=== PATIENT | female | born 1930 | race Caucasian/White ===

== ENCOUNTER 2018-07-28 15:19 | Emergency (ER) | payer MEDICARE, OTHER ==
[2018-07-28] MEDS ORDERED: Indomethacin 25 MG Cap PO ONE (15:20)
--- NOTE | 2018-07-28 15:46 | EDM.PDOC ---
ED HPI GENERAL MEDICAL PROBLEM - General Chief Complaint: Upper Extremity Injury/Pain Stated Complaint: GOUT IS BACK SHE THINKS Time Seen by Provider: 07/28/18 15:35 Source of Information: Reports: Patient - History of Present Illness INITIAL COMMENTS - FREE TEXT/NARRATIVE: Vika complains of sudden onset swelling of the wrist on the right. No trauma was treated with redness that started today. Has had gout before and is worried that this is a similar attack. - Related Data Allergies Allergy/AdvReac Type Severity Reaction Status Date / Time No Known Allergies Allergy Verified 07/28/18 15:39 Home Meds: Home Meds Hydrochlorothiazide/Lisinopril [Lisinopril-HCTZ 20-12.5 MG] 1 tab PO DAILY 06/03 [History] Simvastatin [Zocor] 40 mg PO BEDTIME 06/03/16 [History] glipiZIDE [Glucotrol] 10 mg PO BIDMEALS 06/03/16 [History] metFORMIN [Glucophage] 1,000 mg PO BIDMEALS 06/03/16 [History] Warfarin [Coumadin] 2.5 mg PO .SASUTUWETHFR 07/28/18 [History] Warfarin [Coumadin] 2.5 mg PO MO 07/28/18 [History] Past Medical History HEENT History: Reports: Cataract Cardiovascular History: Reports: High Cholesterol, Hypertension Musculoskeletal History: Reports: Other (See Below) Other Musculoskeletal History: bursitis Endocrine/Metabolic History: Reports: Diabetes, Type II - Past Surgical History HEENT Surgical History: Reports: Cataract Surgery Review of Systems - Review of Systems Review Of Systems: ROS reveals no pertinent complaints other than HPI. ED EXAM, GENERAL - Physical Exam Exam: See Below Exam Limited By: No Limitations General Appearance: Alert Extremities: Joint Swelling (Rt wrist), Increased Warmth, Redness, Other ( Effusion and limited raange of motion.) Departure - Departure Time of Disposition: 15:45 Disposition: Home, Self-Care 01 Clinical Impression: Cellulitis, Gout attack - Discharge Information Referrals: Windy Gutierrez PA [Primary Care Provider] - - Problem List & Annotations (1) Cellulitis SNOMED Code(s): 522257597 Code(s): L03.90 - CELLULITIS, UNSPECIFIED Status: Acute Qualifiers: Site of cellulitis of extremity: upper extremity Laterality: right (2) Gout attack SNOMED Code(s): 53066439, 04571849 Code(s): M10.9 - GOUT, UNSPECIFIED Status: Acute Qualifiers: Gout site: hand - Problem List Review Problem List Initiated/Reviewed/Updated: Yes - Assessment/Plan Plan: Indomethacin, and cephalexin. Advised elevation. Follow up When necessary
[2018-07-28] MEDS ORDERED: Cephalexin 500 MG Cap PO ONE (15:49)
[2018-07-28] MEDS ORDERED: Indomethacin 25 MG Cap ONE ×2 (15:52→16:01)
[2018-07-28] MEDS ORDERED: Indomethacin 50 MG Cap PO ONE (15:55)
[2018-07-28 16:56] VITALS: BP 145/71
== END 2018-07-28 16:04 | disposition home or self-care (01) ==
LOC: FB.ED 15:19
DX: L03.113 Cellulitis of right upper limb (principal); M10.9 Gout, unspecified; E11.9 Type 2 diabetes mellitus without complications; I10 Essential (primary) hypertension; E78.00 Pure hypercholesterolemia, unspecified; Z79.899 Other long term (current) drug therapy; Z79.84 Long term (current) use of oral hypoglycemic drugs; Z79.01 Long term (current) use of anticoagulants
CPT/HCPCS: 99282; A9270

== ENCOUNTER 2019-11-03 13:11 | Inpatient (IN) | payer MEDICARE, OTHER ==
[2019-11-03] MEDS ORDERED: Ondansetron 4 MG Tab.DIS PO PRN (13:19)
[2019-11-03] MEDS ORDERED: Albuterol 0.083% 2.5 MG/3 ML Neb Soln NEB PRN (13:19)
[2019-11-03] MEDS ORDERED: Levofloxacin/Dextrose 5%-Water 500 MG in Premix Bag 1 BAG IV SCH (13:30)
--- NOTE | 2019-11-03 15:25 | PCM.HP.2 ---
H&P History of Present Illness - General Date of Service: 11/04/19 Admit Problem/Dx: Admission Diagnosis/Problem Admission Diagnosis/Problem Pneumonia Source of Information: Patient, Old Records History Limitations: Reports: No Limitations - History of Present Illness Initial Comments - Free Text/Narative: Vika is an 89-year-old female who came to clinic with complaints of recurrent epistaxis. She was noted to be short of breath and complained of feeling weak and lethargic over the last 2 weeks. A chest x-ray subsequently revealed bilateral infiltrates suggestive of pneumonia. She denied fever or chills neither she had any chest pain or headache. She has a history of HTN,gout, atrial fibrillation,CHF, type 2 diabetes and all been well-controlled.Vika lives alone pain Pain Score (Numeric/FACES): 0 - Related Data Allergies/Adverse Reactions: Allergies Allergy/AdvReac Type Severity Reaction Status Date / Time No Known Allergies Allergy Verified 07/28/18 15:39 Home Medications: Home Meds Hydrochlorothiazide/Lisinopril [Lisinopril-HCTZ 20-12.5 MG] 1 tab PO DAILY 06/03 [History] Simvastatin [Zocor] 40 mg PO BEDTIME 06/03/16 [History] glipiZIDE [Glucotrol] 10 mg PO BIDMEALS 06/03/16 [History] metFORMIN [Glucophage] 1,000 mg PO BIDMEALS 06/03/16 [History] Warfarin [Coumadin] 2.5 mg PO SUTUTHSA 07/28/18 [History] Warfarin [Coumadin] 5 mg PO MOWEFR 07/28/18 [History] predniSONE 20 mg PO BID #10 tab 07/28/18 [Rx] Aller-B 1 cap PO DAILY 11/03/19 [History] Allopurinol [Zyloprim] 100 mg PO DAILY 11/03/19 [History] Metoprolol Tartrate 12.5 mg PO BID 11/03/19 [History] Vit A/Vit C/Vit E/Zinc/Copper [Preservision Areds Softgel] 1 each PO DAILY 11/03 [History] Past Medical History HEENT History: Reports: Cataract Cardiovascular History: Reports: High Cholesterol, Hypertension Respiratory History: Reports: Other (See Below) Other Respiratory History: pneumonia when she was 2. Gastrointestinal History: Reports: None Genitourinary History: Reports: None INFERTILITY MEDICAL ASSISTANT History: Reports: None, Musculoskeletal History: Reports: Other (See Below) Other Musculoskeletal History: bursitis Neurological History: Reports: None Psychiatric History: Reports: None Endocrine/Metabolic History: Reports: Diabetes, Type II Hematologic History: Reports: None Immunologic History: Reports: None Oncologic (Cancer) History: Reports: None Dermatologic History: Reports: None - Infectious Disease History Infectious Disease History: Reports: Chicken Pox, Measles, Mumps - Past Surgical History Head Surgeries/Procedures: Reports: None HEENT Surgical History: Reports: Cataract Surgery Respiratory Surgical History: Reports: None GI Surgical History: Reports: None Female Surgical History: Reports: None Musculoskeletal Surgical History: Reports: Hip Replacement Oncologic Surgical History: Reports: None Dermatological Surgical History: Reports: None Social & Family History - Tobacco Use Smoking Status *Q: Never Smoker Second Hand Smoke Exposure: No - Caffeine Use Caffeine Use: Reports: Coffee, Tea Caffeine Use Comment: occ cup of coffee - Recreational Drug Use Recreational Drug Use: No H&P Review of Systems - Review of Systems: Review Of Systems: Comprehensive ROS is negative, except as noted in HPI. Exam - Exam Exam: See Below - Vital Signs Weight: 63.095 kg - Exam Quality Assessment: No: Supplemental Oxygen General: Alert, Oriented, Mild Distress HEENT: PERRLA, Nares Patent Neck: Supple, Trachea Midline Lungs: Crackles, Rales. No: Normal Respiratory Effort Cardiovascular: Regular Rate, Irregular Rhythm GI/Abdominal Exam: Normal Bowel Sounds, Soft, Distended. No: Rigid (Female) Exam: Deferred Rectal (Female) Exam: Deferred Back Exam: Normal Inspection Extremities: No Pedal Edema Skin: Warm, Dry Neurological: Cranial Nerves Intact Neuro Extensive - Mental Status: Alert, Oriented x3 Neuro Extensive - Motor, Sensory, Reflexes: CN II-XII Intact Psychiatric: Alert, Normal Affect - Patient Data Lab Results Last 24 hrs: Laboratory Results - last 24 hr 11/03/19 Range/Units 13:35 Troponin I 0.017 (<0.017-0.056) ng/mL NT-Pro-B Natriuret Pep 6515 H* (<=450) pg/mL Result Diagrams: 11/04/19 06:20 11/04/19 06:20 EKG INTERPRETATION Rhythm: A-Fib - Problem List (1) Pneumonia SNOMED Code(s): 588195478 ICD Code: J18.9 - PNEUMONIA, UNSPECIFIED ORGANISM Status: Acute Current Visit: Yes Qualifiers: Pneumonia type: due to unspecified organism (2) HTN (hypertension) SNOMED Code(s): 65194747 ICD Code: I10 - ESSENTIAL (PRIMARY) HYPERTENSION Status: Chronic Current Visit: Yes Qualifiers: Hypertension type: essential hypertension Qualified Code(s): I10 - Essential (primary) hypertension (3) Epistaxis, recurrent SNOMED Code(s): 116772134, 635539092 ICD Code: R04.0 - EPISTAXIS Status: Acute Current Visit: Yes (4) Gout SNOMED Code(s): 76065565 ICD Code: M10.9 - GOUT, UNSPECIFIED Status: Chronic Current Visit: Yes Qualifiers: Gout etiology: drug-induced (5) Afib SNOMED Code(s): 91651220 ICD Code: I48.91 - UNSPECIFIED ATRIAL FIBRILLATION Status: Chronic Current Visit: Yes Qualifiers: Atrial fibrillation type: other persistent Qualified Code(s): I48.19 - Other persistent atrial fibrillation (6) Palliative care status SNOMED Code(s): 780782784 ICD Code: Z51.5 - ENCOUNTER FOR PALLIATIVE CARE Status: Acute Current Visit: Yes (7) H/O CHF SNOMED Code(s): 079296744 ICD Code: Z86.79 - PERSONAL HISTORY OF OTHER DISEASES OF THE CIRCULATORY SYSTEM Status: Acute Current Visit: Yes Problem List Initiated/Reviewed/Updated: Yes Orders Last 24hrs: Active Orders 24 hr Category Date Time Status Patient Status [ADT] Routine ADT 11/03/19 13:19 Active EKG Documentation Completion [RC] ASDIRECTED Care 11/03/19 13:21 Active Height and Weight [RC] DAILY Care 11/03/19 13:19 Active Intake and Output [RC] QSHIFT Care 11/03/19 13:19 Active Oxygen Therapy [RC] PRN Care 11/03/19 13:19 Active RT Aerosol Therapy [RC] ASDIRECTED Care 11/03/19 13:21 Active Up With Assistance [RC] ASDIRECTED Care 11/03/19 13:19 Active VTE/DVT Education [RC] Per Unit Routine Care 11/03/19 13:19 Active Vital Signs [RC] Q8H Care 11/03/19 13:19 Active Heart Healthy Diet [DIET] Diet 11/03/19 Breakfast Active BASIC METABOLIC PANEL,BMP [CHEM] AM Lab 11/04/19 05:11 Ordered CBC WITH AUTO DIFF [HEME] AM Lab 11/04/19 05:11 Ordered CULTURE BLOOD [BC] Urgent Lab 11/03/19 13:35 Received CULTURE BLOOD [BC] Urgent Lab 11/03/19 13:45 Received Albuterol [Proventil Neb Soln] Med 11/03/19 13:19 Active 2.5 mg NEB Q2H PRN Levofloxacin/Dextrose 5%-Water [Levaquin in D5W 500 MG/ Med 11/03/19 13:30 Active 100 ML] 500 mg Premix Bag 1 bag IV Q24H Ondansetron [Zofran ODT] Med 11/03/19 13:19 Active 4 mg PO Q4H PRN Sodium Chloride 0.9% [Saline Flush] Med 11/03/19 13:19 Active 10 ml FLUSH ASDIRECTED PRN Vit C/Vit E AC/Lut/Copper/Zinc [Preservision Lutein Med 11/04/19 09:00 Ordered Softgel] 1 each PO DAILY Warfarin [Coumadin] Med 11/03/19 15:30 Ordered 2.5 mg PO .SASUTUWETHFR Warfarin [Coumadin] Med 11/09/19 15:24 Ordered 2.5 mg PO MO glipiZIDE [Glucotrol] Med 11/03/19 18:00 Ordered 10 mg PO BIDMEALS Blood Culture x2 Reflex Set [OM.PC] Urgent Oth 11/03/19 13:19 Ordered Peripheral IV Insertion Adult [OM.PC] Routine Oth 11/03/19 13:19 Ordered Resuscitation Status Routine Resus Stat 11/03/19 13:19 Ordered EKG 12 Lead [EK] Stat Ther 11/03/19 13:19 Ordered Medication Orders Albuterol (Proventil Neb Soln) 2.5 mg NEB Q2H PRN PRN Reason: Shortness Of Breath/wheezing Glipizide (Glucotrol) 10 mg PO BIDMEALS [place] Levofloxacin/Dextrose 500 mg/ (Premix) 100 mls @ 100 mls/hr IV Q24H [place] Last Admin: 11/03/19 14:33 Dose: 100 mls/hr Non-Formulary Medication (Vit C/Vit E Ac/Lut/Copper/Zinc [Preservision Lutein Softgel]) 1 each PO DAILY [place] Ondansetron HCl (Zofran Odt) 4 mg PO Q4H PRN PRN Reason: nausea, able to take PO Sodium Chloride (Saline Flush) 10 ml FLUSH ASDIRECTED PRN PRN Reason: Keep Vein Open Warfarin Sodium (Coumadin) 2.5 mg PO .SASUTUWETHFR [place] Warfarin Sodium (Coumadin) 2.5 mg PO MO [place] Assessment/Plan Comment:: Admit patient continue start IV Levaquin. The x-ray findings suggest the possibility of neoplasia, therefore CT scan of the chest is appropriate. We'll keep on a consistent carbohydrate diet, and control sugar with sliding scale of insulin. I'll start a low-dose Lasix to help with a diuresis. Echocardiogram in 2018 revealed ejection fraction of 45%.Involve PT/OT - Mortality Measure Prognosis:: Poor
[2019-11-03] MEDS: Warfarin 2.5 MG Tab PO SCH (16:52)
[2019-11-03] MEDS: Lutein/Minerals/Vitamin C/Vitamin E Acetate Cap PO SCH (20:35)
[2019-11-04] MEDS ORDERED: Lutein/Minerals/Vitamin C/Vitamin E Acetate Cap PO SCH (09:00)
[2019-11-04] MEDS: Lutein/Minerals/Vitamin C/Vitamin E Acetate Cap PO SCH ×2 (09:00→12:49)
[2019-11-04] MEDS ORDERED: Furosemide 20 MG/2 ML VIAL IVPUSH SCH (09:30)
[2019-11-04] MEDS: Sodium Chloride 0.9% 10 ML Syringe FLUSH PRN ×3 (09:37→19:24)
[2019-11-04] MEDS ORDERED: Warfarin Sliding Scale PO SCH (09:45)
[2019-11-04] MEDS ORDERED: Iopamidol 755 Mg/ML 100 ML Bottle IV ONE (11:24)
[2019-11-04] MEDS: Metoprolol Tartrate 25 MG Tab PO SCH ×2 (12:48→20:37)
[2019-11-04] MEDS: Insulin Lispro 100 Unit/ML 3 ML KwikPen SUBCUT SCH ×2 (12:51→17:41)
[2019-11-04] MEDS: Levofloxacin/Dextrose 5%-Water 50 ML IV SCH (13:23)
[2019-11-04] MEDS ORDERED: Warfarin 5 MG Tab PO SCH (16:00)
--- NOTE | 2019-11-04 16:02 | CT ---
INDICATION: Pneumonia/mass - abnormal chest x-ray - white blood count 18.5. CT CHEST WITHOUT AND WITH CONTRAST: Spiral 3.75 mm axial sections were obtained initially without contrast and then with 76 mL Isovue-370 at 2 cc/ second through the chest, with sagittal and coronal reconstructions 11/04/19 and compared with chest x-ray from 11/03/19 from the clinic. Total exam DLP was 596.69 mGy-cm. Consolidating infiltration is noted in the left upper lobe medially and posteriorly, subpleural and extending into the left upper lobe. Density increases from 11.76 Hounsfield units to approximately 26.06 Hounsfield units after IV contrast. Additional consolidating infiltrate and/or atelectasis is noted at the right lower lobe near the diaphragm and to a much lesser extent, at the left lower lobe near the diaphragm with measurements without contrast approximately 19.8 Hounsfield units and after contrast approximately 54.37 Hounsfield units. The contrast enhancement is most likely on the basis of inflamed lung with contrast enhancement rather than neoplasia. Would strongly suggest follow-up CT after successful antibiotic treatment of this patient to show complete clearing of these areas of infiltration. Moderate size pleural effusions are present bilaterally, compatible with pleuritis. Findings suggesting the possibility of lobar emphysema are noted. There is additional patchy infiltrate in the area of the lingula, also felt to be compatible with pneumonia. Left upper lobe infiltrate near the major fissure is noted at the level fo the aortic arch also with a patchy appearance compatible with areas of patchy pneumonia. Mediastinal lymphadenopathy is present, which may be on the basis of active inflammatory disease process. The heart is enlarged. No pericardial effusion was seen. There are calcifications in the coronary arteries and at the mitral valve as well as the aortic valve. The upper abdomen included on the study showed no gross abnormality except for aortic calcifications. IMPRESSION: 1. Findings are felt to be most compatible with bilateral pneumonia. Areas of consolidation and patchy change are noted. Follow up to clearing after treatment is recommended with follow-up chest x-ray or CT examination as felt to be clinically necessary. 2. ASD/ASHD. 3. Mediastinal lymphadenopathy likely on the basis of #1. 4. 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 (Please fax report to Dr. Hendricks and to TIERRA Peng). MTDD
[2019-11-04] MEDS: Furosemide 20 MG/2 ML VIAL IVPUSH SCH (19:24)
[2019-11-05] MEDS ORDERED: Acetaminophen 325 MG Tab PO PRN (00:27)
[2019-11-05] MEDS: Lutein/Minerals/Vitamin C/Vitamin E Acetate Cap PO SCH (08:32)
[2019-11-05] MEDS: Metoprolol Tartrate 25 MG Tab PO SCH ×2 (08:32→20:22)
[2019-11-05] MEDS: Insulin Lispro 100 Unit/ML 3 ML KwikPen SUBCUT SCH ×3 (08:38→17:12)
[2019-11-05] MEDS: Furosemide 20 MG/2 ML VIAL IVPUSH SCH ×2 (08:57→16:49)
[2019-11-05] MEDS: Sodium Chloride 0.9% 10 ML Syringe FLUSH PRN (08:59)
--- NOTE | 2019-11-05 09:09 | PCM.PN ---
- General Info Date of Service: 11/05/19 Subjective Update: Allergies reports some improvement but still short of breath on any ambulation. Denies any fever chest pain chills. Functional Status: Reports: Pain Controlled - Review of Systems General: Reports: No Symptoms Pulmonary: Reports: Shortness of Breath Cardiovascular: Reports: Dyspnea on Exertion Gastrointestinal: Reports: No Symptoms Genitourinary: Reports: No Symptoms - Patient Data Vitals - Most Recent: Last Vital Signs Temp 97.8 F 11/05/19 00:00 Pulse 93 11/05/19 08:32 Resp 18 11/05/19 00:00 BP 116/63 11/05/19 08:32 Pulse Ox 94 L 11/05/19 00:00 Weight - Most Recent: 63.049 kg I&O - Last 24 Hours: Intake & Output 11/04/19 11/05/19 11/05/19 22:59 06:59 14:59 Intake Total 1360 200 Output Total 1575 200 Balance -215 0 Lab Results Last 24 Hours: Laboratory Results - last 24 hr 11/04/19 11/04/19 11/05/19 Range/Units 12:48 17:06 06:30 WBC 14.0 H (4.5-12.0) X10-3/uL RBC 3.78 (3.23-5.20) x10(6)uL Hgb 11.4 L (11.5-15.5) g/dL Hct 35.0 (30.0-51.3) % MCV 92.4 (80-96) fL MCH 30.1 (27.7-33.6) pg MCHC 32.5 (32.2-35.4) g/dL RDW 15.5 (11.5-15.5) % Plt Count 237 (125-369) X10(3)uL MPV 8.4 (7.4-10.4) fL Neut % (Auto) 73.7 (46-82) % Lymph % (Auto) 12.5 L (13-37) % [place] % (Auto) 10.4 (4-12) % Eos % (Auto) 3 (1.0-5.0) % Baso % (Auto) 0 (0-2) % Neut # (Auto) 10.3 H (1.6-8.3) # Lymph # (Auto) 1.7 (0.6-5.0) # [place] # (Auto) 1.5 H (0.0-1.3) # Eos # (Auto) 0.4 (0.0-0.8) # Baso # (Auto) 0.1 (0.0-0.2) # PT (8.7-11.1) INR (0.89-1.13) Sodium (135-145) mmol/L Potassium (3.5-5.3) mmol/L Chloride (100-110) mmol/L Carbon Dioxide (21-32) mmol/L BUN (7-18) mg/dL Creatinine (0.55-1.02) mg/dL Est Cr Clr Drug Dosing mL/min Estimated GFR (MDRD) (>60) BUN/Creatinine Ratio (9-20) Glucose (80-116) mg/dL POC Glucose 236 H 118 H D (80-116) mg/dL Calcium (8.6-10.2) mg/dL Total Bilirubin (0.1-1.3) mg/dL AST (5-25) IU/L ALT (12-36) U/L Alkaline Phosphatase (56-112) IU/L Total Protein (6.0-8.0) g/dL Albumin (2.9-4.5) g/dL Globulin g/dL Albumin/Globulin Ratio 11/05/19 11/05/19 Range/Units 06:30 06:30 WBC (4.5-12.0) X10-3/uL RBC (3.23-5.20) x10(6)uL Hgb (11.5-15.5) g/dL Hct (30.0-51.3) % MCV (80-96) fL MCH (27.7-33.6) pg MCHC (32.2-35.4) g/dL RDW (11.5-15.5) % Plt Count (125-369) X10(3)uL MPV (7.4-10.4) fL Neut % (Auto) (46-82) % Lymph % (Auto) (13-37) % [place] % (Auto) (4-12) % Eos % (Auto) (1.0-5.0) % Baso % (Auto) (0-2) % Neut # (Auto) (1.6-8.3) # Lymph # (Auto) (0.6-5.0) # [place] # (Auto) (0.0-1.3) # Eos # (Auto) (0.0-0.8) # Baso # (Auto) (0.0-0.2) # PT 37.7 H* (8.7-11.1) INR 3.94 H (0.89-1.13) Sodium 140 (135-145) mmol/L Potassium 2.6 L* (3.5-5.3) mmol/L Chloride 100 (100-110) mmol/L Carbon Dioxide 32 (21-32) mmol/L BUN 22 H (7-18) mg/dL Creatinine 0.8 (0.55-1.02) mg/dL Est Cr Clr Drug Dosing 39.44 mL/min Estimated GFR (MDRD) > 60 (>60) BUN/Creatinine Ratio 27.5 H (9-20) Glucose 87 (80-116) mg/dL POC Glucose (80-116) mg/dL Calcium 8.8 (8.6-10.2) mg/dL Total Bilirubin 1.3 (0.1-1.3) mg/dL AST 32 H (5-25) IU/L ALT 20 (12-36) U/L Alkaline Phosphatase 128 H (56-112) IU/L Total Protein 6.1 (6.0-8.0) g/dL Albumin 2.3 L (2.9-4.5) g/dL Globulin 3.8 g/dL Albumin/Globulin Ratio 0.6 Jeanmarie Results Last 24 Hours: Microbiology 11/03/19 13:35 Aerobic Blood Culture - Preliminary Blood - Venous NO GROWTH AFTER 1 DAY Anaerobic Blood Culture - Preliminary NO GROWTH AFTER 1 DAY 11/03/19 13:45 Aerobic Blood Culture - Preliminary Blood - Venous - Lab Draw NO GROWTH AFTER 1 DAY Anaerobic Blood Culture - Preliminary NO GROWTH AFTER 1 DAY Med Orders - Current: Current Medications Acetaminophen (Tylenol) 650 mg PO Q4H PRN PRN Reason: Insomnia Last Admin: 11/05/19 00:43 Dose: 650 mg Albuterol (Proventil Neb Soln) 2.5 mg NEB Q2H PRN PRN Reason: Shortness Of Breath/wheezing Last Admin: 11/03/19 17:00 Dose: 2.5 mg Furosemide (Lasix) 20 mg IVPUSH BID@0900,1600 [facility] Last Admin: 11/05/19 08:57 Dose: 20 mg Glipizide (Glucotrol) 10 mg PO BIDMEALS [facility] Last Admin: 11/05/19 08:30 Dose: 10 mg Levofloxacin/Dextrose (Levaquin In D5w 250 Mg/50 Ml) 50 mls @ 100 mls/hr IV Q24H [facility] Last Admin: 11/04/19 13:23 Dose: 100 mls/hr Insulin Human Lispro (Humalog) 0 unit SUBCUT TIDMEALS [facility]; Protocol Last Admin: 11/05/19 08:38 Dose: Not Given Metoprolol Tartrate (Lopressor) 12.5 mg PO BID [facility] Last Admin: 11/05/19 08:32 Dose: 12.5 mg (Aller-B 1 Cap) * (Ptom) 1 cap PO DAILY [facility] Last Admin: 11/05/19 08:31 Dose: 1 cap Ondansetron HCl (Zofran Odt) 4 mg PO Q4H PRN PRN Reason: nausea, able to take PO Potassium Chloride (Klor-Con M20) 40 meq PO TID [facility] Sodium Chloride (Saline Flush) 10 ml FLUSH ASDIRECTED PRN PRN Reason: Keep Vein Open Last Admin: 11/05/19 08:59 Dose: 10 ml Vit C/Vit E/Zinc/Copper/Lutein (Ocuvite Lutein) 1 each PO DAILY [facility] Last Admin: 11/05/19 08:32 Dose: 1 each Warfarin Sodium (Coumadin) 2.5 mg PO SuTuThSa [facility] Last Admin: 11/03/19 16:52 Dose: 2.5 mg Warfarin Sodium (Coumadin) 5 mg PO MoWeFr [facility] Warfarin Sodium (Coumadin Sliding Scale) 1 each PO ASDIRECTED [facility] Discontinued Medications Furosemide (Lasix) 20 mg IVPUSH BID [facility] Last Admin: 11/04/19 09:34 Dose: 20 mg Levofloxacin/Dextrose 500 mg/ (Premix) 100 mls @ 100 mls/hr IV Q24H [facility] Last Admin: 11/03/19 14:33 Dose: 100 mls/hr Iopamidol (Isovue-370 (76%)) 100 ml IV ONETIME ONE Stop: 11/04/19 11:25 Last Admin: 11/04/19 11:47 Dose: 76 ml Vit C/Vit E/Zinc/Copper/Lutein (Ocuvite Lutein) 1 each PO DAILY [place] Vit C/Vit E/Zinc/Copper/Lutein (Ocuvite Lutein) 1 each PO BID [place] Last Admin: 11/04/19 09:00 Dose: 1 each - Exam General: Alert HEENT: Pupils Equal Lungs: Crackles, Rales Cardiovascular: Regular Rate Back Exam: Normal Inspection Sepsis Event Note - Evaluation Sepsis Screening Result: No Definite Risk - Focused Exam Vital Signs: Vital Signs Temp Pulse Pulse Resp BP BP Pulse Ox 11/05/19 08:32 93 116/63 11/05/19 00:00 97.8 F 76 18 117/71 94 L Date Exam was Performed: 11/05/19 Time Exam was Performed: 09:07 - Problem List & Annotations (1) Pneumonia SNOMED Code(s): 171302795 Code(s): J18.9 - PNEUMONIA, UNSPECIFIED ORGANISM Status: Acute Current Visit: Yes Qualifiers: Pneumonia type: due to unspecified organism (2) HTN (hypertension) SNOMED Code(s): 58714947 Code(s): I10 - ESSENTIAL (PRIMARY) HYPERTENSION Status: Chronic Current Visit: Yes Qualifiers: Hypertension type: essential hypertension Qualified Code(s): I10 - Essential (primary) hypertension (3) Epistaxis, recurrent SNOMED Code(s): 386044339, 321560838 Code(s): R04.0 - EPISTAXIS Status: Acute Current Visit: Yes (4) Gout SNOMED Code(s): 11986549 Code(s): M10.9 - GOUT, UNSPECIFIED Status: Chronic Current Visit: Yes Qualifiers: Gout etiology: drug-induced (5) Afib SNOMED Code(s): 93407050 Code(s): I48.91 - UNSPECIFIED ATRIAL FIBRILLATION Status: Chronic Current Visit: Yes Qualifiers: Atrial fibrillation type: other persistent Qualified Code(s): I48.19 - Other persistent atrial fibrillation (6) Palliative care status SNOMED Code(s): 161003443 Code(s): Z51.5 - ENCOUNTER FOR PALLIATIVE CARE Status: Acute Current Visit: Yes (7) H/O CHF SNOMED Code(s): 082195230 Code(s): Z86.79 - PERSONAL HISTORY OF OTHER DISEASES OF THE CIRCULATORY SYSTEM Status: Acute Current Visit: Yes (8) Hypokalemia SNOMED Code(s): 14642466 Code(s): E87.6 - HYPOKALEMIA Status: Acute Current Visit: Yes - Problem List Review Problem List Initiated/Reviewed/Updated: Yes - My Orders Last 24 Hours: My Active Orders 11/04/19 09:08 Accu Check [Blood Glucose Check, Bedside] [RC] TIDMEALS 11/04/19 09:19 RT Incentive Spirometry [RC] Q4HWA OT Evaluation and Treatment [CONS] Routine PT Evaluation and Treatment [CONS] Routine 11/04/19 09:45 Lutein/Min/Vit C/Vit E Acetate [Ocuvite Lutein] 1 each PO DAILY Warfarin Sliding Scale [Coumadin Sliding Scale] 1 each PO ASDIRECTED 11/04/19 10:00 Aller-B 1 cap PO DAILY Metoprolol Tartrate [Lopressor] 12.5 mg PO BID 11/04/19 12:00 Insulin Lispro [HumaLOG] See Protocol SUBCUT TIDMEALS 11/04/19 14:00 Levofloxacin/Dextrose 5%-Water [Levaquin in D5W 250 MG/50 ML] 50 ml IV Q24H 11/04/19 16:00 Warfarin [Coumadin] 5 mg PO MoWeFr 11/04/19 19:15 Furosemide [Lasix] 20 mg IVPUSH BID@0900,1600 11/04/19 Lunch Consistent Carbohydrate Diet [DIET] 11/05/19 00:27 Acetaminophen [Tylenol] 650 mg PO Q4H PRN 11/05/19 14:00 Potassium Chloride [Klor-Con M20] 40 meq PO TID 11/06/19 05:11 BASIC METABOLIC PANEL,BMP [CHEM] AM 11/06/19 09:46 INR,PT,PROTHROMBIN TIME [COAG] DAILY 11/07/19 09:46 INR,PT,PROTHROMBIN TIME [COAG] DAILY 11/08/19 09:46 INR,PT,PROTHROMBIN TIME [COAG] DAILY 11/09/19 09:46 INR,PT,PROTHROMBIN TIME [COAG] DAILY 11/10/19 09:46 INR,PT,PROTHROMBIN TIME [COAG] DAILY - Plan Plan:: The CT scan confirmed bilateral pneumonia. A BNP also elevated I suspect some systolic dysfunction. I will continued IV antibiotics, IV Lasix and replace potassium today. Repeat labs the morning. Continue physical and occupational therapy.
[2019-11-05] MEDS: Potassium Chloride 20 MEQ Tab.ER PO SCH ×3 (10:20→20:22)
[2019-11-05] MEDS: Levofloxacin/Dextrose 5%-Water 50 ML IV SCH (14:20)
[2019-11-06] MEDS: Insulin Lispro 100 Unit/ML 3 ML KwikPen SUBCUT SCH ×3 (08:58→18:10)
[2019-11-06] MEDS: Potassium Chloride 20 MEQ Tab.ER PO SCH (08:58)
[2019-11-06] MEDS: Metoprolol Tartrate 25 MG Tab PO SCH ×2 (08:59→20:00)
[2019-11-06] MEDS: Lutein/Minerals/Vitamin C/Vitamin E Acetate Cap PO SCH (09:01)
[2019-11-06] MEDS: Furosemide 20 MG/2 ML VIAL IVPUSH SCH (09:52)
[2019-11-06] MEDS: Sodium Chloride 0.9% 10 ML Syringe FLUSH PRN (09:53)
--- NOTE | 2019-11-06 12:14 | PCM.PN ---
- General Info Date of Service: 11/06/19 Subjective Update: Patient reports coughing is better, was able to sleep all night. Had regular bowel movement yesterday per patient. Denies shortness of breath, nausea, vomiting, or diarrhea. Feels she is getting better. Doesn't normally have edema at home but states she is more active at home. Does her own cooking and shopping. - Patient Data Vitals - Most Recent: Last Vital Signs Temp 98 F 11/06/19 00:00 Pulse 94 11/06/19 08:59 Resp 14 11/06/19 00:00 BP 130/76 11/06/19 08:59 Pulse Ox 95 11/06/19 00:00 Weight - Most Recent: 139 lb I&O - Last 24 Hours: Intake & Output 11/05/19 11/06/19 11/06/19 22:59 06:59 14:59 Intake Total 750 Output Total 1800 200 Balance -1050 -200 Lab Results Last 24 Hours: Laboratory Results - last 24 hr 11/05/19 11/06/19 11/06/19 Range/Units 17:10 06:00 06:00 PT 28.7 H (8.7-11.1) INR 2.99 H (0.89-1.13) Sodium 140 (135-145) mmol/L Potassium 3.9 D (3.5-5.3) mmol/L Chloride 103 (100-110) mmol/L Carbon Dioxide 28 (21-32) mmol/L BUN 25 H (7-18) mg/dL Creatinine 0.7 (0.55-1.02) mg/dL Est Cr Clr Drug Dosing 45.07 mL/min Estimated GFR (MDRD) > 60 (>60) BUN/Creatinine Ratio 35.7 H (9-20) Glucose 96 (80-116) mg/dL POC Glucose 143 H (80-116) mg/dL Calcium 8.7 (8.6-10.2) mg/dL 11/06/19 11/06/19 Range/Units 07:03 11:36 PT (8.7-11.1) INR (0.89-1.13) Sodium (135-145) mmol/L Potassium (3.5-5.3) mmol/L Chloride (100-110) mmol/L Carbon Dioxide (21-32) mmol/L BUN (7-18) mg/dL Creatinine (0.55-1.02) mg/dL Est Cr Clr Drug Dosing mL/min Estimated GFR (MDRD) (>60) BUN/Creatinine Ratio (9-20) Glucose (80-116) mg/dL POC Glucose 80 165 H D (80-116) mg/dL Calcium (8.6-10.2) mg/dL Jeanmarie Results Last 24 Hours: Microbiology 11/03/19 13:45 Aerobic Blood Culture - Preliminary Blood - Venous - Lab Draw NO GROWTH AFTER 2 DAYS Anaerobic Blood Culture - Preliminary NO GROWTH AFTER 2 DAYS 11/03/19 13:35 Aerobic Blood Culture - Preliminary Blood - Venous NO GROWTH AFTER 2 DAYS Anaerobic Blood Culture - Preliminary NO GROWTH AFTER 2 DAYS Med Orders - Current: Current Medications Acetaminophen (Tylenol) 650 mg PO Q4H PRN PRN Reason: Insomnia Last Admin: 11/05/19 00:43 Dose: 650 mg Albuterol (Proventil Neb Soln) 2.5 mg NEB Q2H PRN PRN Reason: Shortness Of Breath/wheezing Last Admin: 11/03/19 17:00 Dose: 2.5 mg Glipizide (Glucotrol) 10 mg PO BIDMEALS [facility] Last Admin: 11/06/19 08:57 Dose: 10 mg Lisinopril/HCTZ (Lisinopril/Hctz 20-12.5 Mg) 1 tab PO DAILY [facility] Levofloxacin/Dextrose (Levaquin In D5w 250 Mg/50 Ml) 50 mls @ 100 mls/hr IV Q24H [facility] Last Admin: 11/05/19 14:20 Dose: 100 mls/hr Insulin Human Lispro (Humalog) 0 unit SUBCUT TIDMEALS [facility]; Protocol Last Admin: 11/06/19 11:39 Dose: 1 units Metoprolol Tartrate (Lopressor) 12.5 mg PO BID [facility] Last Admin: 11/06/19 08:59 Dose: 12.5 mg (Aller-B 1 Cap) * (Ptom) 1 cap PO DAILY [facility] Last Admin: 11/06/19 08:58 Dose: 1 cap Ondansetron HCl (Zofran Odt) 4 mg PO Q4H PRN PRN Reason: nausea, able to take PO Sodium Chloride (Saline Flush) 10 ml FLUSH ASDIRECTED PRN PRN Reason: Keep Vein Open Last Admin: 11/06/19 09:53 Dose: 10 ml Vit C/Vit E/Zinc/Copper/Lutein (Ocuvite Lutein) 1 each PO DAILY [facility] Last Admin: 11/06/19 09:01 Dose: 1 each Warfarin Sodium (Coumadin) 2.5 mg PO SuTuThSa [facility] Last Admin: 11/03/19 16:52 Dose: 2.5 mg Warfarin Sodium (Coumadin) 5 mg PO MoWeFr [facility] Warfarin Sodium (Coumadin Sliding Scale) 1 each PO ASDIRECTED [facility] Discontinued Medications Furosemide (Lasix) 20 mg IVPUSH BID [facility] Last Admin: 11/04/19 09:34 Dose: 20 mg Furosemide (Lasix) 20 mg IVPUSH BID@0900,1600 [facility] Last Admin: 11/06/19 09:52 Dose: 20 mg Levofloxacin/Dextrose 500 mg/ (Premix) 100 mls @ 100 mls/hr IV Q24H [facility] Last Admin: 11/03/19 14:33 Dose: 100 mls/hr Iopamidol (Isovue-370 (76%)) 100 ml IV ONETIME ONE Stop: 11/04/19 11:25 Last Admin: 11/04/19 11:47 Dose: 76 ml Potassium Chloride (Klor-Con M20) 40 meq PO TID [facility] Last Admin: 11/06/19 08:58 Dose: 40 meq Vit C/Vit E/Zinc/Copper/Lutein (Ocuvite Lutein) 1 each PO DAILY [facility] Vit C/Vit E/Zinc/Copper/Lutein (Ocuvite Lutein) 1 each PO BID [facility] Last Admin: 11/04/19 09:00 Dose: 1 each - Exam General: Alert, Oriented, Cooperative, No Acute Distress Lungs: Decreased Breath Sounds. No: Rales, Wheezing Cardiovascular: Regular Rate, Irregular Rhythm GI/Abdominal Exam: Normal Bowel Sounds, Soft, Non-Tender, No Distention Extremities: Pedal Edema (1+) Skin: Warm, Dry, Intact Sepsis Event Note - Evaluation Sepsis Screening Result: No Definite Risk - Problem List & Annotations (1) Pneumonia SNOMED Code(s): 762508930 Code(s): J18.9 - PNEUMONIA, UNSPECIFIED ORGANISM Status: Acute Current Visit: Yes Qualifiers: Pneumonia type: due to unspecified organism (2) H/O CHF SNOMED Code(s): 051567000 Code(s): Z86.79 - PERSONAL HISTORY OF OTHER DISEASES OF THE CIRCULATORY SYSTEM Status: Acute Current Visit: Yes (3) Palliative care status SNOMED Code(s): 218049390 Code(s): Z51.5 - ENCOUNTER FOR PALLIATIVE CARE Status: Acute Current Visit: Yes (4) Afib SNOMED Code(s): 02903850 Code(s): I48.91 - UNSPECIFIED ATRIAL FIBRILLATION Status: Chronic Current Visit: Yes Qualifiers: Atrial fibrillation type: other persistent Qualified Code(s): I48.19 - Other persistent atrial fibrillation (5) HTN (hypertension) SNOMED Code(s): 91618968 Code(s): I10 - ESSENTIAL (PRIMARY) HYPERTENSION Status: Chronic Current Visit: Yes Qualifiers: Hypertension type: essential hypertension Qualified Code(s): I10 - Essential (primary) hypertension (6) Diabetes mellitus SNOMED Code(s): 48834574 Code(s): E11.9 - TYPE 2 DIABETES MELLITUS WITHOUT COMPLICATIONS Status: Acute Current Visit: Yes - Problem List Review Problem List Initiated/Reviewed/Updated: Yes - My Orders Last 24 Hours: My Active Orders 11/07/19 06:00 BASIC METABOLIC PANEL,BMP [CHEM] Routine CBC WITH AUTO DIFF [HEME] Routine 11/07/19 09:00 Hydrochlorothiazide/Lisinopril [Lisinopril/HCTZ 20-12.5 MG] 1 tab PO DAILY - Plan Plan:: The CT scan confirmed bilateral pneumonia. Potassium corrected, weight 139, no comparison but no signs of fluid overload on exam will discontinue IV Lasix. Continue IV antibiotics. Continue physical and occupational therapy. Plan to discharge home tentatively Saturday.
[2019-11-06] MEDS: Levofloxacin/Dextrose 5%-Water 50 ML IV SCH (14:16)
[2019-11-07] MEDS: Insulin Lispro 100 Unit/ML 3 ML KwikPen SUBCUT SCH ×3 (08:28→17:53)
[2019-11-07] MEDS: Hydrochlorothiazide/Lisinopril 12.5-20 MG Tab PO SCH (08:30)
[2019-11-07] MEDS: Metoprolol Tartrate 25 MG Tab PO SCH ×2 (08:31→20:22)
[2019-11-07] MEDS: Lutein/Minerals/Vitamin C/Vitamin E Acetate Cap PO SCH (08:33)
--- NOTE | 2019-11-07 09:35 | PCM.PN ---
- General Info Date of Service: 11/07/19 Subjective Update: Patient didn't cough overnight, did get woke up and didn't sleep well. Does not normally take sleep aids at home. Feels her breathing is better. Had bowel movement last night. No fluid in her legs last night. - Patient Data Vitals - Most Recent: Last Vital Signs Temp 98.1 F 11/07/19 00:00 Pulse 108 H 11/07/19 08:31 Resp 18 11/07/19 00:00 BP 135/98 H 11/07/19 08:31 Pulse Ox 96 11/07/19 00:00 Weight - Most Recent: 137 lb 8 oz I&O - Last 24 Hours: Intake & Output 11/06/19 11/07/19 11/07/19 22:59 06:59 14:59 Intake Total 100 Output Total 300 200 Balance -200 -200 Lab Results Last 24 Hours: Laboratory Results - last 24 hr 11/06/19 11/06/19 11/07/19 Range/Units 11:36 17:33 05:38 WBC (4.5-12.0) X10-3/uL RBC (3.23-5.20) x10(6)uL Hgb (11.5-15.5) g/dL Hct (30.0-51.3) % MCV (80-96) fL MCH (27.7-33.6) pg MCHC (32.2-35.4) g/dL RDW (11.5-15.5) % Plt Count (125-369) X10(3)uL MPV (7.4-10.4) fL Neut % (Auto) (46-82) % Lymph % (Auto) (13-37) % Millard % (Auto) (4-12) % Eos % (Auto) (1.0-5.0) % Baso % (Auto) (0-2) % Neut # (Auto) (1.6-8.3) # Lymph # (Auto) (0.6-5.0) # Millard # (Auto) (0.0-1.3) # Eos # (Auto) (0.0-0.8) # Baso # (Auto) (0.0-0.2) # PT (8.7-11.1) INR (0.89-1.13) Sodium (135-145) mmol/L Potassium (3.5-5.3) mmol/L Chloride (100-110) mmol/L Carbon Dioxide (21-32) mmol/L BUN (7-18) mg/dL Creatinine (0.55-1.02) mg/dL Est Cr Clr Drug Dosing mL/min Estimated GFR (MDRD) (>60) BUN/Creatinine Ratio (9-20) Glucose (80-116) mg/dL POC Glucose 165 H D 145 H 87 (80-116) mg/dL Calcium (8.6-10.2) mg/dL 11/07/19 11/07/19 11/07/19 Range/Units 06:45 06:45 06:45 WBC 10.4 (4.5-12.0) X10-3/uL RBC 3.94 (3.23-5.20) x10(6)uL Hgb 11.6 (11.5-15.5) g/dL Hct 36.0 (30.0-51.3) % MCV 91.4 (80-96) fL MCH 29.4 (27.7-33.6) pg MCHC 32.2 (32.2-35.4) g/dL RDW 15.3 (11.5-15.5) % Plt Count 295 (125-369) X10(3)uL MPV 7.6 (7.4-10.4) fL Neut % (Auto) 68.0 (46-82) % Lymph % (Auto) 16.7 (13-37) % Millard % (Auto) 9.6 (4-12) % Eos % (Auto) 5 (1.0-5.0) % Baso % (Auto) 0 (0-2) % Neut # (Auto) 7.1 (1.6-8.3) # Lymph # (Auto) 1.7 (0.6-5.0) # Millard # (Auto) 1.0 (0.0-1.3) # Eos # (Auto) 0.6 (0.0-0.8) # Baso # (Auto) 0.0 (0.0-0.2) # PT 26.8 H (8.7-11.1) INR 2.79 H (0.89-1.13) Sodium 141 (135-145) mmol/L Potassium 4.3 (3.5-5.3) mmol/L Chloride 105 (100-110) mmol/L Carbon Dioxide 28 (21-32) mmol/L BUN 26 H (7-18) mg/dL Creatinine 0.7 (0.55-1.02) mg/dL Est Cr Clr Drug Dosing 45.07 mL/min Estimated GFR (MDRD) > 60 (>60) BUN/Creatinine Ratio 37.1 H (9-20) Glucose 90 (80-116) mg/dL POC Glucose (80-116) mg/dL Calcium 8.7 (8.6-10.2) mg/dL Jeanmarie Results Last 24 Hours: Microbiology 11/03/19 13:45 Aerobic Blood Culture - Preliminary Blood - Venous - Lab Draw NO GROWTH AFTER 3 DAYS Anaerobic Blood Culture - Preliminary NO GROWTH AFTER 3 DAYS 11/03/19 13:35 Aerobic Blood Culture - Preliminary Blood - Venous NO GROWTH AFTER 3 DAYS Anaerobic Blood Culture - Preliminary NO GROWTH AFTER 3 DAYS Med Orders - Current: Current Medications Acetaminophen (Tylenol) 650 mg PO Q4H PRN PRN Reason: Insomnia Last Admin: 11/05/19 00:43 Dose: 650 mg Albuterol (Proventil Neb Soln) 2.5 mg NEB Q2H PRN PRN Reason: Shortness Of Breath/wheezing Last Admin: 11/03/19 17:00 Dose: 2.5 mg Glipizide (Glucotrol) 10 mg PO BIDMEALS [facility] Last Admin: 11/07/19 08:28 Dose: 10 mg Lisinopril/HCTZ (Lisinopril/Hctz 20-12.5 Mg) 1 tab PO DAILY [facility] Last Admin: 11/07/19 08:30 Dose: 1 tab Levofloxacin/Dextrose (Levaquin In D5w 250 Mg/50 Ml) 50 mls @ 100 mls/hr IV Q24H [facility] Last Admin: 11/06/19 14:16 Dose: 100 mls/hr Insulin Human Lispro (Humalog) 0 unit SUBCUT TIDMEALS [facility]; Protocol Last Admin: 11/07/19 08:28 Dose: Not Given Metoprolol Tartrate (Lopressor) 12.5 mg PO BID [facility] Last Admin: 11/07/19 08:31 Dose: 12.5 mg (Aller-B 1 Cap) * (Ptom) 1 cap PO DAILY [facility] Last Admin: 11/07/19 08:29 Dose: 1 cap Ondansetron HCl (Zofran Odt) 4 mg PO Q4H PRN PRN Reason: nausea, able to take PO Sodium Chloride (Saline Flush) 10 ml FLUSH ASDIRECTED PRN PRN Reason: Keep Vein Open Last Admin: 11/06/19 09:53 Dose: 10 ml Vit C/Vit E/Zinc/Copper/Lutein (Ocuvite Lutein) 1 each PO DAILY [facility] Last Admin: 11/07/19 08:33 Dose: 1 each Warfarin Sodium (Coumadin) 2.5 mg PO SuTuThSa [facility] Last Admin: 11/03/19 16:52 Dose: 2.5 mg Warfarin Sodium (Coumadin) 5 mg PO MoWeFr [facility] Last Admin: 11/06/19 16:38 Dose: 5 mg Warfarin Sodium (Coumadin Sliding Scale) 1 each PO ASDIRECTED [facility] Discontinued Medications Furosemide (Lasix) 20 mg IVPUSH BID [facility] Last Admin: 11/04/19 09:34 Dose: 20 mg Furosemide (Lasix) 20 mg IVPUSH BID@0900,1600 [facility] Last Admin: 11/06/19 09:52 Dose: 20 mg Levofloxacin/Dextrose 500 mg/ (Premix) 100 mls @ 100 mls/hr IV Q24H [facility] Last Admin: 11/03/19 14:33 Dose: 100 mls/hr Iopamidol (Isovue-370 (76%)) 100 ml IV ONETIME ONE Stop: 11/04/19 11:25 Last Admin: 11/04/19 11:47 Dose: 76 ml Potassium Chloride (Klor-Con M20) 40 meq PO TID [facility] Last Admin: 11/06/19 08:58 Dose: 40 meq Vit C/Vit E/Zinc/Copper/Lutein (Ocuvite Lutein) 1 each PO DAILY [facility] Vit C/Vit E/Zinc/Copper/Lutein (Ocuvite Lutein) 1 each PO BID [facility] Last Admin: 11/04/19 09:00 Dose: 1 each - Exam General: Alert, Oriented, Cooperative, No Acute Distress Lungs: Normal Respiratory Effort, Decreased Breath Sounds, Crackles (fine in bibasilar) Cardiovascular: Regular Rhythm, Irregular Rhythm GI/Abdominal Exam: Normal Bowel Sounds, Soft, Non-Tender, No Distention Extremities: No Pedal Edema Sepsis Event Note - Evaluation Sepsis Screening Result: No Definite Risk Current Stage of Sepsis: Ruled Out Reason for Ruling Out Sepsis: Blood cultures no growth stable vitals. - Problem List & Annotations (1) Pneumonia SNOMED Code(s): 270331731 Code(s): J18.9 - PNEUMONIA, UNSPECIFIED ORGANISM Status: Acute Current Visit: Yes Qualifiers: Pneumonia type: due to unspecified organism (2) H/O CHF SNOMED Code(s): 615863464 Code(s): Z86.79 - PERSONAL HISTORY OF OTHER DISEASES OF THE CIRCULATORY SYSTEM Status: Acute Current Visit: Yes (3) Palliative care status SNOMED Code(s): 055577641 Code(s): Z51.5 - ENCOUNTER FOR PALLIATIVE CARE Status: Acute Current Visit: Yes (4) Afib SNOMED Code(s): 50643084 Code(s): I48.91 - UNSPECIFIED ATRIAL FIBRILLATION Status: Chronic Current Visit: Yes Qualifiers: Atrial fibrillation type: other persistent Qualified Code(s): I48.19 - Other persistent atrial fibrillation (5) HTN (hypertension) SNOMED Code(s): 66312674 Code(s): I10 - ESSENTIAL (PRIMARY) HYPERTENSION Status: Chronic Current Visit: Yes Qualifiers: Hypertension type: essential hypertension Qualified Code(s): I10 - Essential (primary) hypertension (6) Diabetes mellitus SNOMED Code(s): 51878097 Code(s): E11.9 - TYPE 2 DIABETES MELLITUS WITHOUT COMPLICATIONS Status: Acute Current Visit: Yes - Problem List Review Problem List Initiated/Reviewed/Updated: Yes - My Orders Last 24 Hours: My Active Orders 11/07/19 09:00 Hydrochlorothiazide/Lisinopril [Lisinopril/HCTZ 20-12.5 MG] 1 tab PO DAILY - Plan Plan:: weight down 2 lbs today. Change vital checks to every shift. Continue antibiotics and neb treatments. Plan: discharge Saturday.
[2019-11-07] MEDS: Levofloxacin/Dextrose 5%-Water 50 ML IV SCH (14:49)
[2019-11-07] MEDS: Sodium Chloride 0.9% 10 ML Syringe FLUSH PRN (14:54)
[2019-11-07] MEDS: Warfarin 2.5 MG Tab PO SCH (16:43)
[2019-11-08] MEDS: Hydrochlorothiazide/Lisinopril 12.5-20 MG Tab PO SCH (08:50)
[2019-11-08] MEDS: Metoprolol Tartrate 25 MG Tab PO SCH ×2 (08:51→20:34)
[2019-11-08] MEDS: Lutein/Minerals/Vitamin C/Vitamin E Acetate Cap PO SCH (08:52)
[2019-11-08] MEDS: Insulin Lispro 100 Unit/ML 3 ML KwikPen SUBCUT SCH ×3 (09:02→18:11)
--- NOTE | 2019-11-08 11:20 | PCM.PN ---
- General Info Date of Service: 11/08/19 Subjective Update: She slept better last night, feels better. Taking a nap this morning. NO complaints. No diarrhea. - Patient Data Vitals - Most Recent: Last Vital Signs Temp 98.2 F 11/08/19 08:00 Pulse 104 H 11/08/19 08:51 Resp 20 11/08/19 08:00 BP 133/84 11/08/19 08:51 Pulse Ox 95 11/08/19 08:00 Weight - Most Recent: 135 lb 9.6 oz I&O - Last 24 Hours: Intake & Output 11/07/19 11/08/19 11/08/19 22:59 06:59 14:59 Intake Total 350 150 Output Total 100 450 250 Balance 250 -300 -250 Lab Results Last 24 Hours: Laboratory Results - last 24 hr 11/07/19 11/07/19 11/08/19 Range/Units 11:27 17:44 05:18 PT (8.7-11.1) INR (0.89-1.13) POC Glucose 203 H D 102 D 101 (80-116) mg/dL 11/08/19 Range/Units 05:55 PT 26.0 H (8.7-11.1) INR 2.71 H (0.89-1.13) POC Glucose (80-116) mg/dL Jeanmarie Results Last 24 Hours: Microbiology 11/03/19 13:45 Aerobic Blood Culture - Preliminary Blood - Venous - Lab Draw NO GROWTH AFTER 4 DAYS Anaerobic Blood Culture - Preliminary NO GROWTH AFTER 4 DAYS 11/03/19 13:35 Aerobic Blood Culture - Preliminary Blood - Venous NO GROWTH AFTER 4 DAYS Anaerobic Blood Culture - Preliminary NO GROWTH AFTER 4 DAYS Med Orders - Current: Current Medications Acetaminophen (Tylenol) 650 mg PO Q4H PRN PRN Reason: Insomnia Last Admin: 11/05/19 00:43 Dose: 650 mg Albuterol (Proventil Neb Soln) 2.5 mg NEB Q2H PRN PRN Reason: Shortness Of Breath/wheezing Last Admin: 11/03/19 17:00 Dose: 2.5 mg Glipizide (Glucotrol) 10 mg PO BIDMEALS [facility] Last Admin: 11/08/19 08:49 Dose: 10 mg Lisinopril/HCTZ (Lisinopril/Hctz 20-12.5 Mg) 1 tab PO DAILY [facility] Last Admin: 11/08/19 08:50 Dose: 1 tab Levofloxacin/Dextrose (Levaquin In D5w 250 Mg/50 Ml) 50 mls @ 100 mls/hr IV Q24H [facility] Last Admin: 11/07/19 14:49 Dose: 100 mls/hr Insulin Human Lispro (Humalog) 0 unit SUBCUT TIDMEALS [facility]; Protocol Last Admin: 11/08/19 09:02 Dose: Not Given Metoprolol Tartrate (Lopressor) 12.5 mg PO BID [facility] Last Admin: 11/08/19 08:51 Dose: 12.5 mg (Aller-B 1 Cap) * (Ptom) 1 cap PO DAILY [facility] Last Admin: 11/08/19 08:52 Dose: 1 cap Ondansetron HCl (Zofran Odt) 4 mg PO Q4H PRN PRN Reason: nausea, able to take PO Sodium Chloride (Saline Flush) 10 ml FLUSH ASDIRECTED PRN PRN Reason: Keep Vein Open Last Admin: 11/07/19 14:54 Dose: 10 ml Vit C/Vit E/Zinc/Copper/Lutein (Ocuvite Lutein) 1 each PO DAILY [facility] Last Admin: 11/08/19 08:52 Dose: 1 each Warfarin Sodium (Coumadin) 2.5 mg PO SuTuThSa [facility] Last Admin: 11/07/19 16:43 Dose: 2.5 mg Warfarin Sodium (Coumadin) 5 mg PO MoWeFr [facility] Last Admin: 11/06/19 16:38 Dose: 5 mg Warfarin Sodium (Coumadin Sliding Scale) 1 each PO ASDIRECTED [facility] Discontinued Medications Furosemide (Lasix) 20 mg IVPUSH BID [facility] Last Admin: 11/04/19 09:34 Dose: 20 mg Furosemide (Lasix) 20 mg IVPUSH BID@0900,1600 [facility] Last Admin: 11/06/19 09:52 Dose: 20 mg Levofloxacin/Dextrose 500 mg/ (Premix) 100 mls @ 100 mls/hr IV Q24H [facility] Last Admin: 11/03/19 14:33 Dose: 100 mls/hr Iopamidol (Isovue-370 (76%)) 100 ml IV ONETIME ONE Stop: 11/04/19 11:25 Last Admin: 11/04/19 11:47 Dose: 76 ml Potassium Chloride (Klor-Con M20) 40 meq PO TID [facility] Last Admin: 11/06/19 08:58 Dose: 40 meq Vit C/Vit E/Zinc/Copper/Lutein (Ocuvite Lutein) 1 each PO DAILY [facility] Vit C/Vit E/Zinc/Copper/Lutein (Ocuvite Lutein) 1 each PO BID [facility] Last Admin: 11/04/19 09:00 Dose: 1 each - Exam Quality Assessment: No: Supplemental Oxygen General: Alert, Oriented, Cooperative, No Acute Distress Lungs: Clear to Auscultation, Normal Respiratory Effort Cardiovascular: Regular Rate, Regular Rhythm GI/Abdominal Exam: Normal Bowel Sounds, Soft, Non-Tender, No Distention Extremities: No Pedal Edema Sepsis Event Note - Evaluation Sepsis Screening Result: No Definite Risk - Focused Exam Vital Signs: - Problem List & Annotations (1) Pneumonia SNOMED Code(s): 605062768 Code(s): J18.9 - PNEUMONIA, UNSPECIFIED ORGANISM Status: Acute Current Visit: Yes Qualifiers: Pneumonia type: due to unspecified organism Annotation/Comment:: Day 5 of Levofloxacin (2) H/O CHF SNOMED Code(s): 596228287 Code(s): Z86.79 - PERSONAL HISTORY OF OTHER DISEASES OF THE CIRCULATORY SYSTEM Status: Acute Current Visit: Yes (3) Palliative care status SNOMED Code(s): 472182345 Code(s): Z51.5 - ENCOUNTER FOR PALLIATIVE CARE Status: Acute Current Visit: Yes (4) Afib SNOMED Code(s): 84511718 Code(s): I48.91 - UNSPECIFIED ATRIAL FIBRILLATION Status: Chronic Current Visit: Yes Qualifiers: Atrial fibrillation type: other persistent Qualified Code(s): I48.19 - Other persistent atrial fibrillation (5) HTN (hypertension) SNOMED Code(s): 97277812 Code(s): I10 - ESSENTIAL (PRIMARY) HYPERTENSION Status: Chronic Current Visit: Yes Qualifiers: Hypertension type: essential hypertension Qualified Code(s): I10 - Essential (primary) hypertension (6) Diabetes mellitus SNOMED Code(s): 79517156 Code(s): E11.9 - TYPE 2 DIABETES MELLITUS WITHOUT COMPLICATIONS Status: Acute Current Visit: Yes - Problem List Review Problem List Initiated/Reviewed/Updated: Yes - Plan Plan:: Levofloxacin day 5, will do 7 day course. Plan: discharge Saturday.
[2019-11-08] MEDS: Levofloxacin/Dextrose 5%-Water 50 ML IV SCH (14:35)
[2019-11-08] MEDS: Levofloxacin 250 MG Tab PO SCH (16:47)
[2019-11-08] MEDS: Warfarin 2.5 MG Tab PO SCH (16:47)
[2019-11-09] MEDS: Metoprolol Tartrate 25 MG Tab PO SCH ×2 (08:38→20:59)
[2019-11-09] MEDS: Lutein/Minerals/Vitamin C/Vitamin E Acetate Cap PO SCH (08:38)
[2019-11-09] MEDS: Hydrochlorothiazide/Lisinopril 12.5-20 MG Tab PO SCH (08:39)
[2019-11-09] MEDS: Insulin Lispro 100 Unit/ML 3 ML KwikPen SUBCUT SCH ×3 (08:40→19:29)
[2019-11-09] MEDS ORDERED: Levofloxacin 250 MG Tab PO SCH (15:00)
[2019-11-09] MEDS ORDERED: Warfarin 2.5 MG Tab PO SCH (16:00)
[2019-11-09] MEDS: Levofloxacin 250 MG Tab PO SCH (16:06)
--- NOTE | 2019-11-09 17:36 | PCM.PN ---
- General Info Date of Service: 11/09/19 Subjective Update: Patient little tired from going to bathroom this morning, breathing better. Son can't pick her up until tomorrow. PT reevaluation and they felt safe to discharge. - Patient Data Vitals - Most Recent: Last Vital Signs Temp 98.8 F 11/09/19 16:00 Pulse 105 H 11/09/19 16:00 Resp 16 11/09/19 16:00 BP 131/69 11/09/19 16:00 Pulse Ox 94 L 11/09/19 16:00 Weight - Most Recent: 135 lb 9.6 oz I&O - Last 24 Hours: Intake & Output 11/09/19 11/09/19 11/09/19 06:59 14:59 22:59 Intake Total 600 Output Total 350 400 Balance -350 200 Lab Results Last 24 Hours: Laboratory Results - last 24 hr 11/08/19 11/09/19 11/09/19 Range/Units 17:44 06:32 06:45 PT 26.8 H (8.7-11.1) INR 2.79 H (0.89-1.13) POC Glucose 128 H 109 (80-116) mg/dL 11/09/19 Range/Units 11:36 PT (8.7-11.1) INR (0.89-1.13) POC Glucose 169 H (80-116) mg/dL Jeanmarie Results Last 24 Hours: Microbiology 11/03/19 13:45 Aerobic Blood Culture - Final Blood - Venous - Lab Draw NO GROWTH AFTER 5 DAYS Anaerobic Blood Culture - Final NO GROWTH AFTER 5 DAYS 11/03/19 13:35 Aerobic Blood Culture - Final Blood - Venous NO GROWTH AFTER 5 DAYS Anaerobic Blood Culture - Final NO GROWTH AFTER 5 DAYS Med Orders - Current: Current Medications Acetaminophen (Tylenol) 650 mg PO Q4H PRN PRN Reason: Insomnia Last Admin: 11/05/19 00:43 Dose: 650 mg Albuterol (Proventil Neb Soln) 2.5 mg NEB Q2H PRN PRN Reason: Shortness Of Breath/wheezing Last Admin: 11/03/19 17:00 Dose: 2.5 mg Glipizide (Glucotrol) 10 mg PO BIDMEALS [place] Last Admin: 11/09/19 08:38 Dose: 10 mg Lisinopril/HCTZ (Lisinopril/Hctz 20-12.5 Mg) 1 tab PO DAILY [facility] Last Admin: 11/09/19 08:39 Dose: 1 tab Insulin Human Lispro (Humalog) 0 unit SUBCUT TIDMEALS [facility]; Protocol Last Admin: 11/09/19 12:16 Dose: 1 units Levofloxacin (Levaquin) 250 mg PO Q24H [facility] Last Admin: 11/09/19 16:06 Dose: 250 mg Metoprolol Tartrate (Lopressor) 12.5 mg PO BID [facility] Last Admin: 11/09/19 08:38 Dose: 12.5 mg (Aller-B 1 Cap) * (Ptom) 1 cap PO DAILY [facility] Last Admin: 11/09/19 08:41 Dose: 1 cap Ondansetron HCl (Zofran Odt) 4 mg PO Q4H PRN PRN Reason: nausea, able to take PO Sodium Chloride (Saline Flush) 10 ml FLUSH ASDIRECTED PRN PRN Reason: Keep Vein Open Last Admin: 11/07/19 14:54 Dose: 10 ml Vit C/Vit E/Zinc/Copper/Lutein (Ocuvite Lutein) 1 each PO DAILY [facility] Last Admin: 11/09/19 08:38 Dose: 1 each Warfarin Sodium (Coumadin Sliding Scale) 1 each PO ASDIRECTED [facility] Warfarin Sodium (Coumadin) 2.5 mg PO SuMoTuThFrSa@1600 [facility] Last Admin: 11/09/19 16:06 Dose: 2.5 mg Warfarin Sodium (Coumadin) 5 mg PO We@1600 [facility] Discontinued Medications Furosemide (Lasix) 20 mg IVPUSH BID [facility] Last Admin: 11/04/19 09:34 Dose: 20 mg Furosemide (Lasix) 20 mg IVPUSH BID@0900,1600 [facility] Last Admin: 11/06/19 09:52 Dose: 20 mg Levofloxacin/Dextrose 500 mg/ (Premix) 100 mls @ 100 mls/hr IV Q24H [facility] Last Admin: 11/03/19 14:33 Dose: 100 mls/hr Levofloxacin/Dextrose (Levaquin In D5w 250 Mg/50 Ml) 50 mls @ 100 mls/hr IV Q24H [facility] Last Admin: 11/08/19 14:35 Dose: 100 mls/hr Iopamidol (Isovue-370 (76%)) 100 ml IV ONETIME ONE Stop: 11/04/19 11:25 Last Admin: 11/04/19 11:47 Dose: 76 ml Levofloxacin (Levaquin) 250 mg PO Q24H [facility] Potassium Chloride (Klor-Con M20) 40 meq PO TID [facility] Last Admin: 11/06/19 08:58 Dose: 40 meq Vit C/Vit E/Zinc/Copper/Lutein (Ocuvite Lutein) 1 each PO DAILY [facility] Vit C/Vit E/Zinc/Copper/Lutein (Ocuvite Lutein) 1 each PO BID [facility] Last Admin: 11/04/19 09:00 Dose: 1 each Warfarin Sodium (Coumadin) 2.5 mg PO SuTuThSa [facility] Last Admin: 11/08/19 16:47 Dose: 2.5 mg Warfarin Sodium (Coumadin) 5 mg PO MoWeFr [facility] Last Admin: 11/06/19 16:38 Dose: 5 mg - Exam General: Alert, Oriented, Cooperative, No Acute Distress Lungs: Clear to Auscultation, Normal Respiratory Effort. No: Rales, Wheezing Cardiovascular: Regular Rate, Regular Rhythm GI/Abdominal Exam: Normal Bowel Sounds, Soft, Non-Tender, No Distention ( breathing fast, just got back from the bathroom) Extremities: No Pedal Edema Sepsis Event Note - Evaluation Sepsis Screening Result: No Definite Risk - Focused Exam Vital Signs: Vital Signs Temp Pulse Pulse Resp BP BP Pulse Ox 11/09/19 16:00 98.8 F 105 H 16 131/69 94 L 11/09/19 08:39 121/77 11/09/19 08:38 111 H 121/77 11/09/19 08:00 97.9 F 111 H 16 121/77 94 L Date Exam was Performed: 11/09/19 Time Exam was Performed: 08:00 - Problem List & Annotations (1) Pneumonia SNOMED Code(s): 017233079 Code(s): J18.9 - PNEUMONIA, UNSPECIFIED ORGANISM Status: Acute Current Visit: Yes Qualifiers: Pneumonia type: due to unspecified organism Annotation/Comment:: Day 5 of Levofloxacin (2) H/O CHF SNOMED Code(s): 292185767 Code(s): Z86.79 - PERSONAL HISTORY OF OTHER DISEASES OF THE CIRCULATORY SYSTEM Status: Acute Current Visit: Yes (3) Palliative care status SNOMED Code(s): 470773763 Code(s): Z51.5 - ENCOUNTER FOR PALLIATIVE CARE Status: Acute Current Visit: Yes (4) Afib SNOMED Code(s): 56968910 Code(s): I48.91 - UNSPECIFIED ATRIAL FIBRILLATION Status: Chronic Current Visit: Yes Qualifiers: Atrial fibrillation type: other persistent Qualified Code(s): I48.19 - Other persistent atrial fibrillation (5) HTN (hypertension) SNOMED Code(s): 68097500 Code(s): I10 - ESSENTIAL (PRIMARY) HYPERTENSION Status: Chronic Current Visit: Yes Qualifiers: Hypertension type: essential hypertension Qualified Code(s): I10 - Essential (primary) hypertension (6) Diabetes mellitus SNOMED Code(s): 81580015 Code(s): E11.9 - TYPE 2 DIABETES MELLITUS WITHOUT COMPLICATIONS Status: Acute Current Visit: Yes - Problem List Review Problem List Initiated/Reviewed/Updated: Yes - My Orders Last 24 Hours: My Active Orders 11/09/19 16:00 Warfarin [Coumadin] 2.5 mg PO SuMoTuThFrSa@1600 11/11/19 16:00 Warfarin [Coumadin] 5 mg PO We@1600 - Plan Plan:: Levofloxacin day 6, will do 7 day course. Plan: discharge Saturday, as her son will be able to pick her up.
[2019-11-10] MEDS: Hydrochlorothiazide/Lisinopril 12.5-20 MG Tab PO SCH (08:23)
[2019-11-10] MEDS: Metoprolol Tartrate 25 MG Tab PO SCH (08:24)
[2019-11-10] MEDS: Lutein/Minerals/Vitamin C/Vitamin E Acetate Cap PO SCH (08:24)
[2019-11-10 08:25] VITALS: BP 122/64; PULSE 105
[2019-11-10] MEDS: Levofloxacin 250 MG Tab PO SCH (08:25)
[2019-11-10] MEDS: Insulin Lispro 100 Unit/ML 3 ML KwikPen SUBCUT SCH (08:27)
--- NOTE | 2019-11-10 10:41 | PCM.DCSUM1 ---
Discharge Summary - Hospital Course HPI Initial Comments: Vika is an 89-year-old female who came to clinic with complaints of recurrent epistaxis. She was noted to be short of breath and complained of feeling weak and lethargic over the last 2 weeks. A chest x-ray subsequently revealed bilateral infiltrates suggestive of pneumonia. She denied fever or chills neither she had any chest pain or headache. She has a history of HTN, gout, atrial fibrillation,CHF, type 2 diabetes and all been well-controlled.Vika lives alone - Discharge Data Discharge Date: 11/10/19 Discharge Disposition: Home, Self-Care 01 Condition: Good - Referral to Home Health Primary Care Physician: TIERRA Banuelos - Discharge Diagnosis/Problem(s) (1) Pneumonia SNOMED Code(s): 194148013 ICD Code: J18.9 - PNEUMONIA, UNSPECIFIED ORGANISM Status: Acute Current Visit: Yes Problem Details: Day 7 of Levofloxacin Qualifiers: Pneumonia type: due to unspecified organism (2) H/O CHF SNOMED Code(s): 923409046 ICD Code: Z86.79 - PERSONAL HISTORY OF OTHER DISEASES OF THE CIRCULATORY SYSTEM Status: Acute Current Visit: Yes (3) Palliative care status SNOMED Code(s): 003730814 ICD Code: Z51.5 - ENCOUNTER FOR PALLIATIVE CARE Status: Acute Current Visit: Yes (4) Afib SNOMED Code(s): 45266199 ICD Code: I48.91 - UNSPECIFIED ATRIAL FIBRILLATION Status: Chronic Current Visit: Yes Qualifiers: Atrial fibrillation type: other persistent Qualified Code(s): I48.19 - Other persistent atrial fibrillation (5) HTN (hypertension) SNOMED Code(s): 41448847 ICD Code: I10 - ESSENTIAL (PRIMARY) HYPERTENSION Status: Chronic Current Visit: Yes Qualifiers: Hypertension type: essential hypertension Qualified Code(s): I10 - Essential (primary) hypertension (6) Diabetes mellitus SNOMED Code(s): 76711800 ICD Code: E11.9 - TYPE 2 DIABETES MELLITUS WITHOUT COMPLICATIONS Status: Acute Current Visit: Yes - Patient Summary/Data Consults: Consultations 11/04/19 09:19 OT Evaluation and Treatment [CONS] Routine Please Evaluate and Treat. OT Reason for Consult: ADL's This query below is only for informational purposes and is not editable. Admission Diagnosis/Problem: Pneumonia PT Evaluation and Treatment [CONS] Routine Please Evaluate and Treat. PT Reason for Consult: Ambulation This query below is only for informational purposes and is not editable. Admission Diagnosis/Problem: Pneumonia Hospital Course: Patient admitted for bilateral pneumonia on CT. Blood cultures were negative. Clinically improved throughout stay, lungs clear on discharge. Lab imbalances corrected during stay. She had a few low blood sugars during stay, was on Humalog sliding scale with Metformin held. She will resume home diabetic medications on discharge. She has completed full 7 day course of Levofloxacin today. PT/OT evaluated, was independent in room, ambulating well, so they did not pick her up. Does not require any Home Health services. - Patient Instructions Diet: Diabetic Diet Activity: As Tolerated Driving: May Drive Today Showering/Bathing: May Shower Notify Provider of: Fever, Increased Pain, Nausea and/or Vomiting - Discharge Plan *PRESCRIPTION DRUG MONITORING PROGRAM REVIEWED*: No *COPY OF PRESCRIPTION DRUG MONITORING REPORT IN PATIENT AMADOU: No Home Medications: Home Meds Hydrochlorothiazide/Lisinopril [Lisinopril/HCTZ 20-12.5 MG] 1 tab PO DAILY 06/03 [History] Simvastatin [Zocor] 40 mg PO BEDTIME 06/03/16 [History] glipiZIDE [Glucotrol] 10 mg PO BIDMEALS 06/03/16 [History] metFORMIN [Glucophage] 1,000 mg PO BIDMEALS 06/03/16 [History] Warfarin [Coumadin] 2.5 mg PO SUTUTHSA 07/28/18 [History] Warfarin [Coumadin] 5 mg PO MOWEFR 07/28/18 [History] predniSONE 20 mg PO BID #10 tab 07/28/18 [Rx] Aller-B 1 cap PO DAILY 11/03/19 [History] Metoprolol Tartrate 12.5 mg PO BID 11/03/19 [History] Vit A/Vit C/Vit E/Zinc/Copper [Preservision Areds Softgel] 1 each PO DAILY 11/03 [History] allopurinoL [Zyloprim] 100 mg PO DAILY 11/03/19 [History] Oxygen Therapy Mode: Room Air Patient Handouts: Fall Prevention in the Home, Adult, [id number], Venous Thromboembolism Prevention, Community-Acquired Pneumonia, Adult, [id number] Referrals: Windy Gutierrez PA [Primary Care Provider] - - Discharge Summary/Plan Comment DC Time >30 min.: Yes - Patient Data Vitals - Most Recent: Last Vital Signs Temp 97.8 F 11/10/19 00:00 Pulse 105 H 11/10/19 08:24 Resp 16 11/10/19 00:00 BP 122/64 11/10/19 08:24 Pulse Ox 94 L 11/10/19 00:00 Weight - Most Recent: 136 lb 8 oz I&O - Last 24 hours: Intake & Output 11/09/19 11/10/19 11/10/19 22:59 06:59 14:59 Intake Total 200 250 Output Total 600 200 Balance 200 -350 -200 Lab Results - Last 24 hrs: Laboratory Results - last 24 hr 11/09/19 11/09/19 11/10/19 Range/Units 11:36 17:33 06:31 PT (8.7-11.1) INR (0.89-1.13) POC Glucose 169 H 92 66 L (80-116) mg/dL 11/10/19 Range/Units 06:35 PT 27.7 H (8.7-11.1) INR 2.89 H (0.89-1.13) POC Glucose (80-116) mg/dL Med Orders - Current: Current Medications Acetaminophen (Tylenol) 650 mg PO Q4H PRN PRN Reason: Insomnia Last Admin: 11/05/19 00:43 Dose: 650 mg Albuterol (Proventil Neb Soln) 2.5 mg NEB Q2H PRN PRN Reason: Shortness Of Breath/wheezing Last Admin: 11/03/19 17:00 Dose: 2.5 mg Glipizide (Glucotrol) 10 mg PO BIDMEALS [facility] Last Admin: 11/10/19 08:23 Dose: 10 mg Lisinopril/HCTZ (Lisinopril/Hctz 20-12.5 Mg) 1 tab PO DAILY [facility] Last Admin: 11/10/19 08:23 Dose: 1 tab Insulin Human Lispro (Humalog) 0 unit SUBCUT TIDMEALS [facility]; Protocol Last Admin: 11/10/19 08:27 Dose: Not Given Levofloxacin (Levaquin) 250 mg PO Q24H [facility] Last Admin: 11/10/19 08:25 Dose: 250 mg Metoprolol Tartrate (Lopressor) 12.5 mg PO BID [facility] Last Admin: 11/10/19 08:24 Dose: 12.5 mg (Aller-B 1 Cap) * (Ptom) 1 cap PO DAILY [facility] Last Admin: 11/10/19 08:23 Dose: 1 cap Ondansetron HCl (Zofran Odt) 4 mg PO Q4H PRN PRN Reason: nausea, able to take PO Sodium Chloride (Saline Flush) 10 ml FLUSH ASDIRECTED PRN PRN Reason: Keep Vein Open Last Admin: 11/07/19 14:54 Dose: 10 ml Vit C/Vit E/Zinc/Copper/Lutein (Ocuvite Lutein) 1 each PO DAILY [facility] Last Admin: 11/10/19 08:24 Dose: 1 each Warfarin Sodium (Coumadin Sliding Scale) 1 each PO ASDIRECTED [facility] Warfarin Sodium (Coumadin) 2.5 mg PO SuMoTuThFrSa@1600 [facility] Last Admin: 11/09/19 16:06 Dose: 2.5 mg Warfarin Sodium (Coumadin) 5 mg PO We@1600 [facility] Discontinued Medications Furosemide (Lasix) 20 mg IVPUSH BID [facility] Last Admin: 11/04/19 09:34 Dose: 20 mg Furosemide (Lasix) 20 mg IVPUSH BID@0900,1600 [facility] Last Admin: 11/06/19 09:52 Dose: 20 mg Levofloxacin/Dextrose 500 mg/ (Premix) 100 mls @ 100 mls/hr IV Q24H [facility] Last Admin: 11/03/19 14:33 Dose: 100 mls/hr Levofloxacin/Dextrose (Levaquin In D5w 250 Mg/50 Ml) 50 mls @ 100 mls/hr IV Q24H [facility] Last Admin: 11/08/19 14:35 Dose: 100 mls/hr Iopamidol (Isovue-370 (76%)) 100 ml IV ONETIME ONE Stop: 11/04/19 11:25 Last Admin: 11/04/19 11:47 Dose: 76 ml Levofloxacin (Levaquin) 250 mg PO Q24H [facility] Potassium Chloride (Klor-Con M20) 40 meq PO TID [facility] Last Admin: 11/06/19 08:58 Dose: 40 meq Vit C/Vit E/Zinc/Copper/Lutein (Ocuvite Lutein) 1 each PO DAILY [facility] Vit C/Vit E/Zinc/Copper/Lutein (Ocuvite Lutein) 1 each PO BID [facility] Last Admin: 11/04/19 09:00 Dose: 1 each Warfarin Sodium (Coumadin) 2.5 mg PO SuTuThSa [facility] Last Admin: 11/08/19 16:47 Dose: 2.5 mg Warfarin Sodium (Coumadin) 5 mg PO MoWeFr [facility] Last Admin: 11/06/19 16:38 Dose: 5 mg - Exam General: Reports: Alert, Oriented, Cooperative, No Acute Distress Lungs: Reports: Clear to Auscultation, Normal Respiratory Effort. Denies: Wheezing Cardiovascular: Reports: Regular Rate, Regular Rhythm GI/Abdominal Exam: Normal Bowel Sounds, Soft, Non-Tender, No Distention Extremities: No Pedal Edema
[2019-11-11] MEDS ORDERED: Warfarin 5 MG Tab PO SCH (16:00)
== END 2019-11-10 14:10 | disposition home or self-care (01) | DRG 194 ==
LOC: FB.MS 13:11
PROVIDERS: ADMIT Family Medicine; ATTEND Family Medicine
DX: J18.9 Pneumonia, unspecified organism (principal); I48.19 Other persistent atrial fibrillation; Z51.5 Encounter for palliative care; E11.9 Type 2 diabetes mellitus without complications; E78.00 Pure hypercholesterolemia, unspecified; M10.9 Gout, unspecified; Z96.649 Presence of unspecified artificial hip joint; I10 Essential (primary) hypertension; M10.20 Drug-induced gout, unspecified site; Z79.899 Other long term (current) drug therapy; Z79.01 Long term (current) use of anticoagulants; Z87.01 Personal history of pneumonia (recurrent); Z98.49 Cataract extraction status, unspecified eye; Z86.79 Personal history of other diseases of the circulatory system
CPT/HCPCS: 36415; 71270; 80048; 80053; 82962; 83880; 84484; 85025; 85610; 87040; 93005; 94150; 94640; 97165-GO; A9270-GY; J1815; J1940; J1956; Q9967